=== PATIENT | female | born 1940 | race Caucasian/White ===

== ENCOUNTER 2019-09-09 12:30 | Inpatient (IN) | payer MEDICARE ==
[2019-09-09] MEDS ORDERED: ONDANSETRON 4 MG/2 ML VIAL IVP PRN (17:49)
[2019-09-09] MEDS ORDERED: NALOXONE 0.4 MG/ML 1 ML VIAL IV PRN (17:49)
[2019-09-09] MEDS ORDERED: MELATONIN 3 MG TABLET PO PRN (17:49)
--- NOTE | 2019-09-09 17:57 | P.HPIM ---
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 Apparently yesterday the patient presented there complaining of 5 days of diarrhea and lower abdominal pain, with decrease in appetite increasing fatigue and weakness, urinary frequency, right lower back pain. She denies any dysuria, denies subjective fevers chills or night sweats. The patient denies any chest pain denies shortness of breath, she denies nausea and vomiting. The patient reports to ambulate unassisted is able to complete her ADLs and resides with her son. The patient reports being given antibiotics Flagyl and Levaquin yesterday and then was notified earlier this morning that she had bacteremia. The patient reported that she was tested for Covid 19 yesterday and was told today that she was negative. Currently there is no imaging studies with the patient's chart that was apparently done at [facility] there is also no reports. Following information was reported to me by the accepting physician Dr. Shane via verbal checkout. Apparently CT abdomen and pelvis was done at [facility] that showed colitis perinephric stranding suggestive of pyelonephritis. Review of labs sodium 135 potassium 3.6 chloride 101 bicarb 25 BUN 27 creatinine 1.48 GFR 34 platelets was 93. Patient was hemodynamically stable Review of Systems Pertinent positives per HPI all other review of systems otherwise negative Past Medical History Past Medical History: No Reported History History of Any Multi-Drug Resistant Organisms: None Reported Past Surgical History: Appendectomy Additional Past Surgical History / Comment(s): Cervical spinal fusion, Left knee repair Past Anesthesia/Blood Transfusion Reactions: No Reported Reaction Past Psychological History: No Psychological Hx Reported Smoking Status: Never smoker Past Drug Use History: None Reported - Past Family History Mother Family Medical History: Diabetes Mellitus, Myocardial Infarction ([place]) Father Family Medical History: Coronary Artery Disease (CAD) Medications and Allergies Home Medications Medication Instructions Recorded Confirmed Type Amitriptyline HCl [Elavil] 50 mg PO HS 09/09/19 09/09/19 History DULoxetine HCL [Cymbalta] 60 mg PO DAILY 09/09/19 09/09/19 History Levofloxacin [Levaquin] 750 mg PO Q48H 09/09/19 09/09/19 History Morphine Sulfate ER [Ms Contin] 15 mg PO Q8H 09/09/19 09/09/19 History metroNIDAZOLE [Flagyl] 500 mg PO TID 09/09/19 09/09/19 History Allergies Allergy/AdvReac Type Severity Reaction Status Date / Time Penicillins Allergy Anaphylaxis Verified 09/09/19 16:27 Physical Exam Vitals: Vital Signs Temp Pulse Resp BP Pulse Ox 09/09/19 16:00 97.9 F 80 18 141/64 95 Intake and Output 09/09/19 09/09/19 09/09/19 06:59 14:59 22:59 Other: Weight 92 kg Constitutional: No acute distress, conversant, pleasant Eyes: Anicteric sclerae, moist conjunctiva, no lid-lag, PERRLA ENMT: NC/AT,Oropharynx clear, no erythema, exudates Neck:Supple, FROM, no masses, or JVD, No carotid bruits; No thyromegaly Lungs: Clear to auscultation, Clear to percussion, Normal respiratory effort, no accessory muscle use Cardiovascular: Heart regular in rate and rhythm, No murmurs, gallops, or rubs no peripheral edema Abdominal: Soft Nontender, nom distended, no guarding, no rebound or rigidity, Normoactive bowel sounds No hepatomegaly, No splenomegaly, No palpable mass No abdominal wall hernia noted Skin: Normal temperature, tone, texture, turgor, No induration No subcutaneous nodules, No rash, lesions, No ulcers Extremities:No digital cyanosis No clubbing, Pedal pulses intact and symmetrical Radial pulses intact and symmetrical, R CVA tenderness Psychiatric: Alert and oriented to person, place and time, Appropriate affect Intact judgement Neuro: Muscles Strength 5/5 in all 4 extremities, Sensation to light touch grossly present throughout, Cranial nerves II-XII grossly intact. No focal sens ory deficits Thrombosis Risk Factor Assmnt - Choose All That Apply Any of the Below Risk Factors Present?: Yes Each Factor Represents 1 point: Obesity (BMI >25) Other Risk Factors: Yes Each Risk Factor Represents 2 Points: Age 61-74 years Thrombosis Risk Factor Assessment Total Risk Factor Score: 3 Thrombosis Risk Factor Assessment Level: Moderate Risk Assessment and Plan Assessment: E. coli bacteremia Pyelonephritis Acute colitis Acute kidney injury Chronic pain Plan: The patient is admitted anticipated return to midnight stay with reports of E. coli bacteremia likely secondary to hematogenous spread from a reported urinary tract infection/acute pyelonephritis. The patient was started on Flagyl and Levaquin to treat colitis and pyelonephritis which will be continued. Imaging studies are currently unavailable, these will be requested from [facility] through nursing and batch unit treater. The patient is noted to have elevated creatinine with a GFR of 35, there is concern for acute kidney injury possibly prerenal. We'll check a renal ultrasound, initiate IV fluids, obtain blood cultures and a C. diff. The patient also reported being cold but negative results that were given to her today, we'll attempt to verify that the records requested from [facility]. We'll also plan to consult ID for further recommendations. Continue supportive management with Zofran, resume her home medications. Prophylaxis with Protonix and heparin/SCDS. We'll continue to follow the patient's clinical course CODE STATUS: Full code anticipated discharge place: Home Greater than 60 minutes was spent in evaluation and documentation of this patient
--- NOTE | 2019-09-09 18:58 | US ---
EXAMINATION TYPE: US renals and bladder DATE OF EXAM: 09/09/2019 COMPARISON: NONE CLINICAL HISTORY: 78-year-old female Elevated creatinine. TECHNIQUE: Multiple sonographic images of the kidneys and bladder are obtained. FINDINGS: EXAM MEASUREMENTS: Right Kidney: 11.9 x 4.9 x 4.5 cm Left Kidney: 9.5 x 5.0 x 4.5 cm Right Kidney: stone centrally in the mid/lower pole = 1.2cm. No hydronephrosis seen. Left Kidney: Benign cyst upper pole = 1.4 x 1.3 x 1.3cm, stone upper pole = 0.9cm. No hydronephrosis. Bladder: appears wnl Bilateral Jets seen: no IMPRESSION: 1. No hydronephrosis. 2. A centrally located 1.2 cm calculus in the mid to lower pole of the right kidney. 3. 9 mm nonobstructive left upper pole renal calculus.
[2019-09-09] MEDS: MORPHINE SULFATE ER 15 MG TABLET PO SCH (19:30)
[2019-09-09] MEDS: SODIUM CHLORIDE 0.9% 1,000 ML IV SCH (19:30)
[2019-09-09] MEDS: AMITRIPTYLINE HCL 25 MG TAB PO SCH (21:18)
[2019-09-09] MEDS: ACETAMINOPHEN TAB 325 MG TAB PO PRN (21:19)
[2019-09-09] MEDS: HEPARIN SODIUM,PORCINE 5,000 UNIT/ML 1 ML VIAL SQ SCH (21:29)
[2019-09-10] MEDS: metroNIDAZOLE-NS PMX 500 MG in SALINE 1 100ML.BAG IVPB SCH ×4 (00:05→23:05)
[2019-09-10 01:33] LABS: Appearance,Urine Clear (Clear); Bacteria,Urine Rare /hpf; Bilirubin,Urine Negative (Negative); Blood,Urine Small (Negative); Budding Yeast,Urine Occasional /hpf; Color,Urine Yellow; Glucose,Urine (UA) Negative (Negative); Ketones,Urine Negative (Negative); Leukocyte Esterase,Urine Large (Negative); Mucus,Urine Rare /hpf; Nitrite,Urine Negative (Negative); Protein,Urine 1+ (Negative); RBC,Urine 2 /hpf (0-5); Specific Gravity,Urine 1.021 (1.001-1.035); Squamous Epithelial Cell,Urine 3 /hpf (0-4); Urobilinogen,Urine <2.0 mg/dL (<2.0); WBC,Urine 41 /hpf (0-5)
[2019-09-10] MEDS: MORPHINE SULFATE ER 15 MG TABLET PO SCH ×3 (05:29→18:15)
[2019-09-10] MEDS: SODIUM CHLORIDE 0.9% 1,000 ML IV SCH ×3 (06:05→23:06)
[2019-09-10 07:43] LABS: Albumin 2.5 g/dL (3.5-5.0); Calcium 7.5 mg/dL (8.4-10.2); Potassium 2.9 mmol/L (3.5-5.1); Total Bilirubin 0.4 mg/dL (0.2-1.3); Total Protein 4.6 g/dL (6.3-8.2)
[2019-09-10] MEDS: HEPARIN SODIUM,PORCINE 5,000 UNIT/ML 1 ML VIAL SQ SCH ×2 (08:05→20:40)
[2019-09-10] MEDS: DULoxetine HCL 60 MG CAPSULE.DR PO SCH (08:05)
[2019-09-10] MEDS: LEVOFLOXACIN 750MG-D5W PMX 750 MG in DEXTROSE/WATER 1 150ML.BAG IVPB SCH (08:06)
[2019-09-10 08:09] LABS: Basophils % (A) 0 %; Eosinophils # (A) 0.1 k/uL (0-0.7); Eosinophils % (A) 2 %; HCT 32.2 % (34.0-46.0); HGB 10.6 gm/dL (11.4-16.0); Lymphocytes # (A) 0.5 k/uL (1.0-4.8); Lymphocytes % (A) 10 %; MCH 30.2 pg (25.0-35.0); MCHC 33.1 g/dL (31.0-37.0); MCV 91.3 fL (80.0-100.0); Mean Platelet Volume 7.9; Monocytes # (A) 0.3 k/uL (0-1.0); Monocytes % (A) 5 %; Neutrophils % (A) 79 %; Platelet Count 111 k/uL (150-450); RBC 3.52 m/uL (3.80-5.40); RDW 13.6 % (11.5-15.5); WBC 5.1 k/uL (3.8-10.6)
--- NOTE | 2019-09-10 11:33 | P.CONS ---
History of Present Illness - Reason for Consult Consult date: 09/09/19 gram negtaive bacteremia Requesting physician: Hayder Perez - Chief Complaint diarrhea and abdominal pain x 5 days - History of Present Illness Patient is a 78-year-old female presenting to [facility], ER with chief complaints of diarrhea and lower abdominal pain patient is having diarrhea for about 4 to 5 days before she presented hospital with multiple loose stool which denies having any blood in mucus in the stool severe complaining of abdominal pain mostly lower abdominal area also been intensity about 5-6 out of 10 and no radiation patient has felt nauseated but no vomiting patient complaining of increased fatigue weakness and some urinary frequency but no burning with the symptom had the patient presented to [facility] with the patient has been evaluated patient be tested for COVID-19 and has been told she is negative we still do not have any official report of the same she did have a CT of abdominal pelvis which did shows evidence of colitis and perinephric stranding patient did have blood cultures drawn there with him showi ng gram-negative bacilli patient has been transferred to [facility] for further management of underlying condition she was started on Levaquin Flagyl infectious disease was consulted for further recommendation about antibiotic therapy. Review of Systems Positive point has been mentioned in HPI rest of the systems are negative Past Medical History Past Medical History: No Reported History History of Any Multi-Drug Resistant Organisms: None Reported Past Surgical History: Appendectomy Additional Past Surgical History / Comment(s): Cervical spinal fusion, Left knee repair Past Anesthesia/Blood Transfusion Reactions: No Reported Reaction Past Psychological History: No Psychological Hx Reported Smoking Status: Never smoker Past Drug Use History: None Reported - Past Family History Mother Family Medical History: Diabetes Mellitus, Myocardial Infarction ([place]) Father Family Medical History: Coronary Artery Disease (CAD) Medications and Allergies Home Medications Medication Instructions Recorded Confirmed Type Amitriptyline HCl [Elavil] 50 mg PO HS 09/09/19 09/09/19 History DULoxetine HCL [Cymbalta] 60 mg PO DAILY 09/09/19 09/09/19 History Levofloxacin [Levaquin] 750 mg PO Q48H 09/09/19 09/09/19 History Morphine Sulfate ER [Ms Contin] 15 mg PO Q8H 09/09/19 09/09/19 History metroNIDAZOLE [Flagyl] 500 mg PO TID 09/09/19 09/09/19 History Allergies Allergy/AdvReac Type Severity Reaction Status Date / Time Penicillins Allergy Anaphylaxis Verified 09/09/19 16:27 Physical Exam Vitals: Vital Signs Temp Pulse Resp BP Pulse Ox 09/09/19 16:00 97.9 F 80 18 141/64 95 Intake and Output 09/09/19 09/09/19 09/10/19 14:59 22:59 06:59 Intake Total 118 Balance 118 Intake: Oral 118 Other: Weight 92 kg GENERAL DESCRIPTION: Elderly female up in the chair, no distress. No tachypnea or accessory muscle of respiration use. HEENT: Shows Pallor , no scleral icterus. Oral mucous membrane is dry. NECK: Trachea central, no thyromegaly. LUNGS: Unlabored breathing. Clear to auscultation anteriorly. No wheeze or crackle. HEART: S1, S2, regular rate and rhythm. ABDOMEN: Soft, no tenderness , guarding or rigidity EXTREMITIES: No edema of feet. SKIN: No rash, no masses palpable. NEUROLOGICAL: The patient is awake, alert, oriented x3, mood and affect normal. Results CBC & Chem 7: 09/10/19 07:05 09/10/19 07:05 Assessment and Plan Assessment: 1-patient with gram-negative bacteremia in this patient presenting to the hospital with diarrhea and abdominal pain in this patient who did have a CT that he was suggestive of colitis apparently did have a positive UA source of this bacteremia likely abdominal though Unasyn was not entirely excluded 2-patient with a penicillin allergy that would limit the number of antibiotics safe to use (1) E coli bacteremia Current Visit: Yes Status: Acute Code(s): R78.81 - BACTEREMIA; B96.20 - UNSP ESCHERICHIA COLI THE CAUSE OF DISEASES [facility]SD [facility] SNOMED Code(s): 649419713149 Plan: 1-we will try to obtain CT abdominal pelvis and culture report from the outside facility 2-for now we will keep the patient on Levaquin and Flagyl 3-gentle IV fluid We will follow on clinical condition and cultures to further adjust medication if needed Thank you for this consultation we will follow the patient along with you Time with Patient: Greater than 30
[2019-09-10] MEDS: ACETAMINOPHEN TAB 325 MG TAB PO PRN (19:45)
[2019-09-10] MEDS: AMITRIPTYLINE HCL 25 MG TAB PO SCH (20:40)
--- NOTE | 2019-09-10 22:40 | P.PN ---
Subjective Progress Note Date: 09/10/19 Patient seen and examined at bedside. Patient states she just feels weak overall. Patient denies chest pain, shortness of breath, fever, or chills. Patient denies diarrhea today. Objective - Vital Signs Vital signs: Vital Signs Temp 98.7 F 09/10/19 19:36 Pulse 83 09/10/19 19:36 Resp 18 09/10/19 19:36 BP 122/66 09/10/19 19:36 Pulse Ox 96 09/10/19 19:36 Intake & Output 09/10/19 09/10/19 09/11/19 06:59 18:59 06:59 Intake Total 300 400 Balance 300 400 Intake: Intake, IV Titration 400 Amount Sodium Chloride 0.9% 1, 400 000 ml @ 100 mls/hr IV . Q10H KYLE Rx#:[id number] Oral 300 Other: # Voids 4 1 1 # Bowel Movements 3 - Constitutional General appearance: Present: morbidly obese - EENT Eyes: Present: EOMI, PERRLA, normal appearance ENT: Present: hearing grossly normal, normal oropharynx Ears: bilateral: normal - Neck Neck: Present: normal ROM Carotids: bilateral: upstroke normal Thyroid: bilateral: normal size - Respiratory Respiratory: bilateral: CTA - Cardiovascular Rhythm: regular Heart sounds: normal: S1, S2 - Gastrointestinal General gastrointestinal: Present: decreased bowel sounds, soft - Integumentary Integumentary: Present: normal - Neurologic Neurologic: Present: CNII-XII intact - Musculoskeletal Musculoskeletal: Present: generalized weakness - Labs CBC & Chem 7: 09/10/19 07:05 09/10/19 07:05 Labs: Abnormal Lab Results - Last 24 Hours (Table) 09/10/19 09/10/19 09/10/19 Range/Units 00:59 07:05 07:05 RBC 3.52 L (3.80-5.40) m/uL Hgb 10.6 L (11.4-16.0) gm/dL Hct 32.2 L (34.0-46.0) % Plt Count 111 L (150-450) k/uL Lymphocytes # 0.5 L (1.0-4.8) k/uL Sodium 135 L (137-145) mmol/L Potassium 2.9 L (3.5-5.1) mmol/L BUN 20 H (7-17) mg/dL Creatinine 1.31 H (0.52-1.04) mg/dL Glucose 115 H (74-99) mg/dL Calcium 7.5 L (8.4-10.2) mg/dL Total Protein 4.6 L (6.3-8.2) g/dL Albumin 2.5 L (3.5-5.0) g/dL Urine Protein 1+ H (Negative) Urine Blood Small H (Negative) Ur Leukocyte Esterase Large H (Negative) Urine WBC 41 H (0-5) /hpf Urine Bacteria Rare H (None) /hpf Urine Mucus Rare H (None) /hpf Urine Yeast (Budding) Occasional H (None) /hpf Microbiology - Last 24 Hours (Table) 09/09/19 18:28 Blood Culture - Preliminary Blood No Growth after 24 hours 09/09/19 18:42 Blood Culture - Preliminary Blood No Growth after 24 hours 09/10/19 00:59 Urine Culture - Preliminary Urine,Voided Assessment and Plan Assessment: 1. E. coli bacteremia likely secondary to hematogenous spread from a reported urinary tract infection/acute pyelonephritis. The patient was started on Flagyl and Levaquin to treat colitis and pyelonephritis which will be continued. ID recs appreciated 2. RICKI likely prerenal. IV hydration treand BUN/Cr 3. Hypokalemia likely caused by diarrhea Potassium replacement with KCL 5. Generalized weakness secondary to above PT/OT 6. AM labs 7. GI/DVT prophylaxis
[2019-09-10] MEDS: POTASSIUM CHLORIDE ER 20 MEQ TAB.ER PO SCH (23:05)
[2019-09-11] MEDS: MORPHINE SULFATE ER 15 MG TABLET PO SCH ×3 (02:39→17:00)
[2019-09-11] MEDS: DULoxetine HCL 60 MG CAPSULE.DR PO SCH (07:41)
[2019-09-11] MEDS: metroNIDAZOLE-NS PMX 500 MG in SALINE 1 100ML.BAG IVPB SCH ×3 (07:41→23:40)
[2019-09-11] MEDS: POTASSIUM CHLORIDE ER 20 MEQ TAB.ER PO SCH ×2 (07:41→21:01)
[2019-09-11] MEDS: HEPARIN SODIUM,PORCINE 5,000 UNIT/ML 1 ML VIAL SQ SCH ×2 (07:42→21:01)
[2019-09-11 08:21] LABS: Albumin 2.6 g/dL (3.5-5.0); Calcium 7.7 mg/dL (8.4-10.2); Magnesium 1.8 mg/dL (1.6-2.3); Potassium 3.5 mmol/L (3.5-5.1); Total Bilirubin 0.2 mg/dL (0.2-1.3); Total Protein 4.8 g/dL (6.3-8.2)
--- NOTE | 2019-09-11 08:23 | PN ---
PROGRESS NOTE DATE OF SERVICE: 09/10/2019 REASON FOR FOLLOWUP: E coli bacteremia. INTERVAL HISTORY: The patient is currently afebrile. Patient is breathing comfortably. The patient's diarrhea has improved. Still complains of abdominal pain. No nausea, no vomiting. No chest pain, shortness of breath or cough. PHYSICAL EXAMINATION: Blood pressure 122/66, pulse of 83, temperature 98.7. She is 92% on 2 L nasal cannula. General description is an elderly female up in the bed in no distress. Respiratory system: Unlabored breathing. Clear to auscultation anteriorly. Heart S1, S2. Regular rate and rhythm. Abdomen soft, no tenderness. LABS: Hemoglobin is 10.3, white count 5.9, BUN of 20, creatinine is 1.31. DIAGNOSTIC IMPRESSION AND PLAN: Patient with gram-negative bacteremia, source possible urinary versus colitis. Patient clinically responded to Levaquin and Flagyl to continue while waiting for the ID sensitivity on that cultures from the outside facility. Continue supportive care. MMODL / IJN: [id number] /
[2019-09-11 08:28] LABS: HCT 33.6 % (34.0-46.0); HGB 10.5 gm/dL (11.4-16.0); MCH 29.4 pg (25.0-35.0); MCHC 31.3 g/dL (31.0-37.0); MCV 93.8 fL (80.0-100.0); Platelet Count 126 k/uL (150-450); RBC 3.58 m/uL (3.80-5.40); RDW 13.9 % (11.5-15.5); WBC 4.9 k/uL (3.8-10.6)
[2019-09-11] MEDS: SODIUM CHLORIDE 0.9% 1,000 ML IV SCH ×3 (09:17→21:01)
[2019-09-11] MEDS: LEVOFLOXACIN 750MG-D5W PMX 750 MG in DEXTROSE/WATER 1 150ML.BAG IVPB SCH (09:20)
[2019-09-11 10:53] LABS: Lymphocytes # (M) 0.54 k/uL (1.0-4.8); Monocytes # (M) 0.15 k/uL (0-1.0); Neutrophils # (M) 4.12 k/uL (1.3-7.7); Neutrophils % (M) 84 %; Nucleated Red Blood Cells 0 /100 WBC (0-0); Total Cells Counted 100
[2019-09-11 10:55] LABS: Poikilocytosis (M) Present
--- NOTE | 2019-09-11 16:07 | P.PN ---
Subjective Progress Note Date: 09/11/19 Patient seen and examined at bedside. Patient is resting comfortably in bed. He denies chest pain shortness of breath nausea vomiting fevers or chills. Labs have improved today. Patient continues to have a low-grade fever. Objective - Vital Signs Vital signs: Vital Signs Temp 99.2 F 09/11/19 15:10 Pulse 85 09/11/19 15:10 Resp 16 09/11/19 15:10 BP 127/64 09/11/19 15:10 Pulse Ox 96 09/11/19 15:10 Intake & Output 09/10/19 09/11/19 09/11/19 18:59 06:59 18:59 Intake Total 1200 300 Balance 1200 300 Intake: Intake, IV Titration 1200 Amount Sodium Chloride 0.9% 1, 1100 000 ml @ 100 mls/hr IV . Q10H KYLE Rx#:[id number] metroNIDAZOLE-NS PMX 500 100 mg In Saline 1 100ml.bag @ 100 mls/hr IVPB Q8HR KYLE Rx#:[id number] Oral 300 Other: # Voids 1 1 3 - Exam General: [non toxic], [no distress], [appears at stated age] Derm: [warm], [dry] Head: [atraumatic], [normocephalic], [symmetric] Eyes: [EOMI], [no lid lag], [anicteric sclera] Mouth: [no lip lesion], [mucus membranes moist] Cardiovascular: [S1S2 reg], [no murmur], [positive posterior tibial pulse bilateral], Lungs: [CTA bilateral], [no rhonchi, no rales] , [no accessory muscle use] Abdominal: [soft], [ nontender to palpation], [no guarding], [no appreciable organomegaly] Ext: [no gross muscle atrophy], [no edema], [no contractures] Neuro: [ CN II-XI grossly intact], [no focal neuro deficits] Psych: [Alert], [oriented], [appropriate affect] - Labs CBC & Chem 7: 09/11/19 07:41 09/11/19 07:41 Labs: Abnormal Lab Results - Last 24 Hours (Table) 09/11/19 09/11/19 Range/Units 07:41 07:41 RBC 3.58 L (3.80-5.40) m/uL Hgb 10.5 L (11.4-16.0) gm/dL Hct 33.6 L (34.0-46.0) % Plt Count 126 L (150-450) k/uL Lymphocytes # (Manual) 0.54 L (1.0-4.8) k/uL Chloride 109 H (98-107) mmol/L Carbon Dioxide 18 L (22-30) mmol/L Creatinine 1.20 H (0.52-1.04) mg/dL Glucose 197 H (74-99) mg/dL Calcium 7.7 L (8.4-10.2) mg/dL Total Protein 4.8 L (6.3-8.2) g/dL Albumin 2.6 L (3.5-5.0) g/dL Microbiology - Last 24 Hours (Table) 09/10/19 00:59 Urine Culture - Final Urine,Voided 09/09/19 18:28 Blood Culture - Preliminary Blood No Growth after 24 hours 09/09/19 18:42 Blood Culture - Preliminary Blood No Growth after 24 hours Assessment and Plan Assessment: 1. E. coli bacteremia likely secondary to hematogenous spread from a reported urinary tract infection/acute pyelonephritis. The patient was started on Flagyl and Levaquin to treat colitis and pyelonephr itis which will be continued. ID recs appreciated patient continues to have a low-grade fever. 2. RICKI likely prerenal. Improving IV hydration treand BUN/Cr 3. Hypokalemia likely caused by diarrhea resolved Potassium replacement with KCL 5. Generalized weakness secondary to above PT/OT 6. AM labs 7. GI/DVT prophylaxis
[2019-09-11] MEDS: ACETAMINOPHEN TAB 325 MG TAB PO PRN (19:03)
[2019-09-11] MEDS: AMITRIPTYLINE HCL 25 MG TAB PO SCH (21:01)
[2019-09-12] MEDS: MORPHINE SULFATE ER 15 MG TABLET PO SCH ×3 (01:08→17:15)
[2019-09-12] MEDS: SODIUM CHLORIDE 0.9% 1,000 ML IV SCH ×2 (06:12→19:13)
--- NOTE | 2019-09-12 07:08 | PN ---
PROGRESS NOTE DATE OF SERVICE: 09/11/2019 REASON FOR FOLLOWUP: E. coli bacteremia with a question of colitis. Source is urinary source. INTERVAL HISTORY: The patient is currently afebrile. She is breathing comfortably. Abdominal pain is currently controlled. No nausea, no vomiting. No diarrhea. No chest pain, shortness of breath or cough. PHYSICAL EXAMINATION: Blood pressure 132/66, pulse of 89, temperature 98.7. She is 93% on room air. General description is an elderly female, lying in bed in no distress. RESPIRATORY SYSTEM: Unlabored breathing, clear to auscultation anteriorly. HEART: S1, S2. Regular rate and rhythm. ABDOMEN: Soft, mildly tender, no guarding, no rigidity. LABS: Hemoglobin is 10.5, white count of 4.9, BUN of 15, creatinine 1.20. Blood culture repeat has been negative. Urine is negative. DIAGNOSTIC IMPRESSION AND PLAN: Patient with an Escherichia coli bacteremia with concern for possible colitis or urinary source. Still waiting for the final on the blood cultures from the outside facility. Patient is currently covered with the Levaquin and Flagyl to continue. Monitor clinical course closely. Continue supportive care. MMODL / IJN: [id number] /
[2019-09-12] MEDS: HEPARIN SODIUM,PORCINE 5,000 UNIT/ML 1 ML VIAL SQ SCH ×2 (07:55→20:14)
[2019-09-12] MEDS: POTASSIUM CHLORIDE ER 20 MEQ TAB.ER PO SCH ×2 (07:55→20:14)
[2019-09-12] MEDS: metroNIDAZOLE-NS PMX 500 MG in SALINE 1 100ML.BAG IVPB SCH ×2 (07:56→16:48)
[2019-09-12] MEDS: DULoxetine HCL 60 MG CAPSULE.DR PO SCH (07:56)
--- NOTE | 2019-09-12 13:49 | P.PN ---
Subjective Progress Note Date: 09/12/19 Principal diagnosis: Bacteremia Patient still feeling weak all over, also having some abdominal pain. No urinary symptoms. No vomiting. No chest pain or shortness of breath. No fevers or chills. Objective - Vital Signs Vital signs: Vital Signs Temp 99.4 F 09/12/19 07:00 Pulse 89 09/12/19 07:00 Resp 18 09/12/19 07:00 BP 115/64 09/12/19 07:00 Pulse Ox 96 09/12/19 07:00 Intake & Output 09/11/19 09/12/19 09/12/19 18:59 06:59 18:59 Intake Total 300 800 Balance 300 800 Intake: Intake, IV Titration 800 Amount Sodium Chloride 0.9% 1, 800 000 ml @ 100 mls/hr IV . Q10H KYLE Rx#:[id number] Oral 300 Other: # Voids 3 2 # Bowel Movements 1 - Exam Constitutional: No acute distress, conversant, pleasant Eyes:Anicteric sclerae, moist conjunctiva, no lid-lag, PERRLA, ENMT: Oropharynx clear, no erythema, exudates Neck: Supple, FROM, no masses, or JVD, No carotid bruits, No thyromegaly Lungs: Clear to auscultation, Clear to percussion, Normal respiratory effort, no accessory muscle use Cardiovascular: Heart regular in rate and rhythm, No murmurs, gallops, or rubs, No peripheral edema Abdominal: Diffusely tender, no guarding, rebound or rigidity, Normoactive bowel sounds, No hepatomegaly, No splenomegaly, No palpable mass Skin: Normal temperature, tone, texture, turgor, no induration, No subcutaneous nodules, No rash, lesions, No ulcers Extremities: No digital cyanosis, No clubbing, Pedal pulses intact and symmetrical, Radial pulses intact and symmetrical, No calf tenderness Psychiatric: Alert and oriented to person, place and time, appropriate affect, intact judgement Neuro: Muscles Strength 5/5 in all 4 extremities, Sensation to light touch grossly present throughout, Cranial nerves II-XII grossly intact, no focal sensory deficits - Labs CBC & Chem 7: 09/11/19 07:41 09/11/19 07:41 Labs: Microbiology - Last 24 Hours (Table) 09/11/19 07:41 Blood Culture - Preliminary Blood No Growth after 24 hours 09/09/19 18:42 Blood Culture - Preliminary Blood No Growth after 48 hours 09/09/19 18:28 Blood Culture - Preliminary Blood No Growth after 48 hours 09/10/19 00:59 Urine Culture - Final Urine,Voided Assessment and Plan Plan: 1. E. coli bacteremia likely secondary to hematogenous spread from a reported urinary tract infection/acute pyelonephritis. Continue Levaquin ID following 2. RICKI likely prerenal. Improving IV hydration trend BUN/Cr 3. Hypokalemia likely caused by diarrhea resolved Potassium replaced 4. Acute colitis Levaquin as above as well as flagyl 5. Generalized weakness secondary to above PT/OT
[2019-09-12] MEDS: AMITRIPTYLINE HCL 25 MG TAB PO SCH (20:14)
--- NOTE | 2019-09-12 23:49 | PN ---
PROGRESS NOTE DATE OF SERVICE: 09/12/2019 REASON FOR FOLLOWUP: E coli bacteremia, possible colitis/UTI. INTERVAL HISTORY: The patient is currently afebrile. The patient is breathing comfortably. The patient denies having any chest pain or shortness of breath or cough. Abdominal pain has improved. No further diarrhea. Urinary symptoms have improved. PHYSICAL EXAMINATION: Blood pressure 126/69, pulse of 95, temperature 98.4. She is 96% on room air. General description is an elderly female up in the chair in no distress. RESPIRATORY SYSTEM: Unlabored breathing with decreased breath sounds at the base. No wheeze. HEART: S1, S2. Regular rate and rhythm. ABDOMEN: Soft, distended. LAB: Hemoglobin is 10.5, white count 4.9. Blood culture repeat has been negative. Urine is negative. DIAGNOSTIC IMPRESSION AND PLAN: Patient admitted to hospital with Escherichia coli bacteremia. Possible source is abdominal in this patient who did have a question of colitis. We will try to get the sensitivities from the outside facility to determine her discharge antibiotics. Continue Levaquin and Flagyl at this point. Monitor clinical course closely. MMODL / IJN: [id number] /
[2019-09-13] MEDS: metroNIDAZOLE-NS PMX 500 MG in SALINE 1 100ML.BAG IVPB SCH ×4 (00:01→22:58)
[2019-09-13] MEDS: MORPHINE SULFATE ER 15 MG TABLET PO SCH ×3 (01:40→18:51)
[2019-09-13] MEDS: SODIUM CHLORIDE 0.9% 1,000 ML IV SCH (03:48)
[2019-09-13 07:16] LABS: Albumin 2.5 g/dL (3.5-5.0); Magnesium 1.6 mg/dL (1.6-2.3); Phosphorus 3.2 mg/dL (2.5-4.5); Potassium 4.5 mmol/L (3.5-5.1); Total Bilirubin 0.2 mg/dL (0.2-1.3); Total Protein 4.6 g/dL (6.3-8.2)
[2019-09-13 07:44] LABS: HCT 31.4 % (34.0-46.0); HGB 9.9 gm/dL (11.4-16.0); Hypochromasia Slight; MCH 29.4 pg (25.0-35.0); MCHC 31.7 g/dL (31.0-37.0); MCV 92.7 fL (80.0-100.0); Mean Platelet Volume 7.6; RBC 3.39 m/uL (3.80-5.40); RDW 14.1 % (11.5-15.5); WBC 4.2 k/uL (3.8-10.6)
[2019-09-13] MEDS: DULoxetine HCL 60 MG CAPSULE.DR PO SCH (07:46)
[2019-09-13] MEDS: HEPARIN SODIUM,PORCINE 5,000 UNIT/ML 1 ML VIAL SQ SCH ×2 (07:47→19:56)
[2019-09-13 08:05] LABS: Platelet Count 197 k/uL (150-450)
[2019-09-13] MEDS ORDERED: LEVOFLOXACIN 750 MG TAB PO SCH (09:00)
[2019-09-13 09:22] LABS: Eosinophils # (M) 0.04 k/uL (0-0.7); Lymphocytes # (M) 0.84 k/uL (1.0-4.8); Monocytes # (M) 0.34 k/uL (0-1.0); Neutrophils # (M) 2.98 k/uL (1.3-7.7); Neutrophils % (M) 71 %; Nucleated Red Blood Cells 0 /100 WBC (0-0); Total Cells Counted 100
[2019-09-13 09:23] LABS: Anisocytosis (M) Present; Poikilocytosis (M) Present
--- NOTE | 2019-09-13 10:55 | P.PN ---
Subjective Progress Note Date: 09/13/19 Principal diagnosis: Bacteremia Patient still feeling weak today. Also still having abdominal pain. No diarrhea. No urinary symptoms. No fevers or chills. Objective - Vital Signs Vital signs: Vital Signs Temp 98.5 F 09/13/19 06:36 Pulse 89 09/13/19 06:36 Resp 18 09/13/19 01:40 BP 125/66 09/13/19 06:36 Pulse Ox 96 09/13/19 06:36 Intake & Output 09/12/19 09/13/19 09/13/19 18:59 06:59 18:59 Other: # Voids 1 1 - Exam Constitutional: No acute distress, conversant, pleasant Eyes:Anicteric sclerae, moist conjunctiva, no lid-lag, PERRLA, ENMT: Oropharynx clear, no erythema, exudates Neck: Supple, FROM, no masses, or JVD, No carotid bruits, No thyromegaly Lungs: Clear to auscultation, Clear to percussion, Normal respiratory effort, no accessory muscle use Cardiovascular: Heart regular in rate and rhythm, No murmurs, gallops, or rubs, No peripheral edema Abdominal: Diffusely tender, no guarding, rebound or rigidity, Normoactive bowel sounds, No hepatomegaly, No splenomegaly, No palpable mass Skin: Normal temperature, tone, texture, turgor, no induration, No subcutaneous nodules, No rash, lesions, No ulcers Extremities: No digital cyanosis, No clubbing, Pedal pulses intact and symmetrical, Radial pulses intact and symmetrical, No calf tenderness Psychiatric: Alert and oriented to person, place and time, appropriate affect, intact judgement Neuro: Muscles Strength 5/5 in all 4 extremities, Sensation to light touch grossly present throughout, Cranial nerves II-XII grossly intact, no focal sensory deficits - Labs CBC & Chem 7: 09/13/19 06:03 09/13/19 06:03 Labs: Abnormal Lab Results - Last 24 Hours (Table) 09/13/19 09/13/19 Range/Units 06:03 06:03 RBC 3.39 L (3.80-5.40) m/uL Hgb 9.9 L (11.4-16.0) gm/dL Hct 31.4 L (34.0-46.0) % Lymphocytes # (Manual) 0.84 L (1.0-4.8) k/uL Chloride 117 H (98-107) mmol/L Carbon Dioxide 18 L (22-30) mmol/L Glucose 114 H (74-99) mg/dL Calcium 8.0 L (8.4-10.2) mg/dL AST 12 L (14-36) U/L Total Protein 4.6 L (6.3-8.2) g/dL Albumin 2.5 L (3.5-5.0) g/dL Microbiology - Last 24 Hours (Table) 09/11/19 07:41 Blood Culture - Preliminary Blood No Growth after 48 hours 09/09/19 18:42 Blood Culture - Preliminary Blood No Growth after 72 hours 09/09/19 18:28 Blood Culture - Preliminary Blood No Growth after 72 hours Assessment and Plan Plan: 1. E. coli bacteremia likely secondary to hematogenous spread from a reported urinary tract infection/acute pyelonephritis. Continue Levaquin ID following 2. RICKI likely prerenal. IV hydration Resolved 3. Acute colitis Levaquin as above as well as flagyl 4. Generalized weakness secondary to above PT/OT
[2019-09-13] MEDS: AMITRIPTYLINE HCL 25 MG TAB PO SCH (19:57)
[2019-09-14] MEDS: MORPHINE SULFATE ER 15 MG TABLET PO SCH ×2 (01:59→08:52)
--- NOTE | 2019-09-14 05:25 | PN ---
PROGRESS NOTE DATE OF SERVICE: 09/13/2019 REASON FOR FOLLOWUP: E coli bacteremia source possible colitis. INTERVAL HISTORY: The patient is currently afebrile. The patient has been breathing comfortably, feeling slightly better. Denies having any chest pain or any cough. No nausea, no vomiting. No abdominal pain or diarrhea. PHYSICAL EXAMINATION: Blood pressure 135/64 with a pulse of 90, temperature 99.2. She is 95% on room air. General description is an elderly female up in the chair in no distress. RESPIRATORY SYSTEM: Unlabored breathing, clear to auscultation anteriorly. HEART: S1, S2. Regular rate and rhythm. ABDOMEN: Soft, no tenderness. LABS: Hemoglobin 9.9, white count 4.2, BUN of 9, creatinine 0.93. Blood cultures done this admission has been negative. DIAGNOSTIC IMPRESSION AND PLAN: Patient admitted with Escherichia coli bacteremia source likely colitis. Overall clinical improvement on Levaquin and Flagyl, which will be continued for another 10 days to finish a course of therapy. Continue with supportive care. MMODL / IJN: [id number] /
[2019-09-14 08:03] VITALS: BP 122/78; PULSE 83; RESP 17; TEMP 99.7
[2019-09-14] MEDS: HEPARIN SODIUM,PORCINE 5,000 UNIT/ML 1 ML VIAL SQ SCH (08:52)
[2019-09-14] MEDS: DULoxetine HCL 60 MG CAPSULE.DR PO SCH (08:52)
[2019-09-14] MEDS: metroNIDAZOLE-NS PMX 500 MG in SALINE 1 100ML.BAG IVPB SCH (08:53)
--- NOTE | 2019-09-14 11:42 | P.DS ---
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 Patient initially presented with 5 days of diarrhea and lower abdominal pain, with decrease in appetite, increasing fatigue and weakness, urinary frequency, right lower back pain. She denied any dysuria, subjective fevers chills or night sweats. No chest pain or shortness of breath, no nausea and vomiting. The patient reported that she was tested for Covid 19 yesterday and was told today that she was negative. CT abdomen and pelvis was done at [facility] showed colitis perinephric stranding suggestive of pyelonephritis. Review of labs sodium 135 potassium 3.6 chloride 101 bicarb 25 BUN 27 creatinine 1.48 GFR 34 platelets was 93. Patient was hemodynamically stable. Patient was admitted to the hospital for further evaluation and management. Blood and urine cultures remain negative. She was maintained on Levaquin and Flagyl. Patient was also treated with IV fluids due to diarrhea and dehydration. During the hospitalization she continued to complain from some abdominal pain and diarrhea as well as general weakness but these symptoms improved towards the end of the hospitalization. She initially had low potassium on her labs and that was replaced. Follow-up labs were all within normal limits. Today patient is feeling better and will be discharged home in a stable condition. Time for discharge 35 minutes. Plan - Discharge Summary Discharge Rx Participant: Yes New Discharge Prescriptions: New Levofloxacin [Levaquin] 750 mg PO Q48H 6 Days #3 tab Continue Morphine Sulfate ER [Ms Contin] 15 mg PO Q8H DULoxetine HCL [Cymbalta] 60 mg PO DAILY Amitriptyline HCl [Elavil] 50 mg PO HS metroNIDAZOLE [Flagyl] 500 mg PO TID 6 Days #18 tab Discontinued Levofloxacin [Levaquin] 750 mg PO Q48H Discharge Medication List Amitriptyline HCl [Elavil] 50 mg PO HS 09/09/19 [History] DULoxetine HCL [Cymbalta] 60 mg PO DAILY 09/09/19 [History] Morphine Sulfate ER [Ms Contin] 15 mg PO Q8H 09/09/19 [History] Levofloxacin [Levaquin] 750 mg PO Q48H 6 Days #3 tab 09/14/19 [Rx] metroNIDAZOLE [Flagyl] 500 mg PO TID 6 Days #18 tab 09/14/19 [Rx]
--- NOTE | 2019-09-14 16:42 | PN ---
PROGRESS NOTE DATE OF SERVICE: 09/14/2019 REASON FOR FOLLOWUP: E coli bacteremia, possible colitis. INTERVAL HISTORY: The patient is currently afebrile. The patient is breathing comfortably. The patient denies having any chest pain or shortness of breath or cough. No nausea, no vomiting. No abdominal pain, no diarrhea. PHYSICAL EXAMINATION: Blood pressure 122/78 with a pulse of 83, temperature 98.7, 95% on room air. General description is an elderly female, lying in bed in no distress. RESPIRATORY SYSTEM: Unlabored breathing, clear to auscultation anteriorly. HEART: S1, S2. Regular rate and rhythm. ABDOMEN: Soft, no tenderness. LABS: Culture done here has been negative. DIAGNOSTIC IMPRESSION AND PLAN: Patient with E coli bacteremia, source likely colitis. Overall improvement on Levaquin and Flagyl to continue for another 10 days to finish a course of therapy. Continue supportive care. MMODL / IJN: [id number] /
--- NOTE | 2019-09-16 13:40 | CDI ---
Documentation Clarification Form Date: 09/16/19 From: Corrine Vernon Phone: If you have a question about this query, please contact Ruth Chowdhury [employer] at [phone] between 8am and 5pm. Admit Date: 09/09/19 Discharge Date:09/14/19 Patient Name: Lubna Mcginnis Visit Number: [id number] ATTENTION: The Clinical Documentation Specialists (CDI) and [facility] Coding Staff appreciate your assistance in clarifying documentation. Please respond to the clarification below the line at the bottom and electronically sign. The CDI & [facility] Coding staff will review the response and follow-up if needed. Please note: Queries are made part of the Legal Health Record. If you have any questions, please contact the author of this message via ITS. Dear Dr. Barbosa Bacteremia is documented throughout the chart. Documentation in your progress notes states E.coli bacteremia likely secondary to hematogenous spread from a reported urinary tract infection/acute pyelonephritis. Patient history/risk factors: Patient was transferred from [place] for reported E.coli bacteremia source likely colitis, UTI Clinical Indicators: E.coli bacteremia at [place] WBC: 5.1 Left Shift: 79% Blood Culture: No growth Consult: Dr. Houston documented bacteremia likely abdominal though urinary was not entirely excluded Treatment: Antibiotics: IV Levaquin, IV Flagyl Bacteremia is considered a lab finding. Please clarify if that lab finding is clinical indicator of a more definitive medical diagnosis such as: Bacteremia, resolved Bacteremia Ruled Out Sepsis Infectious Process, please specify: Other, please specify Unable to determine E. coli bacteremia, resolved with treatment MTDD
--- NOTE | 2019-09-26 15:11 | CDI ---
Documentation Clarification Form Date: 09/26/2019 02:49:40 PM From: Laurence Zhou RN CCDS Admit Date: 09/09/2019 12:30:00 PM Patient Name: Lubna Mcginnis Visit Number: [id number] Discharge Date: 09/14/2019 04:37:00 PM ATTENTION: The Clinical Documentation Specialists (CDI) and [facility] Coding Staff appreciate your assistance in clarifying documentation. Please respond to the clarification below the line at the bottom and electronically sign. The CDI & [facility] Coding staff will review the response and follow-up if needed. Please note: Queries are made part of the Legal Health Record. If you have any questions, please contact the author of this message via ITS. Dr. Romie Barbosa Coding guidelines do not allow coding professionals to code based on laboratory results; therefore, your input is requested. The COVID-19 test obtained on 09/07 was reported as Negative on 09/07 In the transfer documentation from [facility]. Per the H&P 09/08 and DCS 09/13 The patient reported that she was tested for COVID 19 yesterday and was told today that she was negative. 78-year-old female presents to [facility] as a transfer from [facility] for reported Escherichia coli bacteremia. Clinical Indicators Patient reported five days of diarrhea and lower abdominal pain, with decrease in appetite, fatigue and weakness. 09/08 VS in ED Triage: T: 97.9, P: 80, R 18, Sat 95% on Room Air 09/09 WBC 5.1 Treatment: In order to capture the severity of condition, please clarify the COVID-19 status: COVID-19 ruled out False negative, treating for COVID-19 based on these clinical indicators: Other, please specify (Last Form Revision: August 2019) COVID-19 ruled out MTDD
== END 2019-09-14 16:37 | disposition home or self-care (01) | DRG 372 ==
LOC: 4SSUR 12:30
PROVIDERS: ADMIT Internal Medicine; ATTEND Internal Medicine
DX: A04.4 Other intestinal Escherichia coli infections (principal); R78.81 Bacteremia; N10 Acute pyelonephritis; N17.9 Acute kidney failure, unspecified; Z20.828 Contact with and (suspected) exposure to other viral communicable diseases; E86.0 Dehydration; E87.6 Hypokalemia; G89.29 Other chronic pain; B96.20 Unspecified Escherichia coli [E. coli] as the cause of diseases classified elsewhere; E66.01 Morbid (severe) obesity due to excess calories; Z68.39 Body mass index [BMI] 39.0-39.9, adult; Z98.1 Arthrodesis status; Z79.891 Long term (current) use of opiate analgesic; Z79.899 Other long term (current) drug therapy; Z88.0 Allergy status to penicillin; Z90.49 Acquired absence of other specified parts of digestive tract; Z83.3 Family history of diabetes mellitus; Z82.49 Family history of ischemic heart disease and other diseases of the circulatory system
CPT/HCPCS: 76770; 80053; 81001; 83605; 83735; 84100; 85025; 87040; 87086; 93005